=== PATIENT | male | born 1965 | race Caucasian/White ===

== ENCOUNTER 2024-12-01 05:18 | Emergency (ER) | payer SELFPAY ==
[2024-12-01 05:36] VITALS: BMI 32.5
--- NOTE | 2024-12-01 06:43 | MHC.EDTECH ---
Call out to [employer] Watcher @[phone] gave demographics before passing call to .
--- NOTE | 2024-12-01 06:44 | ED_ITS ---
HPI - CPR General Chief Complaint: Cardiac Arrest/CPR Stated Complaint: cardiac arrest Time Seen by Provider: 12/01/24 05:28 Source: family and EMS Mode of arrival: EMS Limitations: other (cardiac arrest) History of Present Illness ED Provider: Dr. Jacky Bueno HPI narrative: 59-year-old male with no past medical history who presents emergency department for evaluation of asystolic cardiac arrest. Information came from the patient's and [id number] as well as EMS. The states that she sleeps in a separate room then her . She got up this morning to go to work inject in on her in found him lying on the floor in his bedroom. Patient was unresponsive. When EMS arrived they started CPR and the 1st cardiac rhythm was asystole. EMS put in an iGel LMA airway and placed the patient on a Mario CPR device. Patient was given 6 rounds of epinephrine in remained asystolic throughout the entire EMS resuscitation. The estimate that they did ALS for approximately 30 minutes prior to arriving in the emergency department. In the emergency department CPR was continued with the Mario device, the patient was given epinephrine IV. At the 1st pulse check the patient was pulseless. At the 1st rhythm check the patient was asystolic. The patient was given 2nd dose of epinephrine and again at the 2nd pulse check and rhythm check the patient was pulseless and asystolic. At this point the patient had been asystolic for greater than 40 minutes and the patient was pronounced at 05:26 hours. The patient's and [id number] were in the emergency department and I did inform them of the patient's . The family told me that the patient had been ill for approximately 5-7 days with shortness of breath and occasional cough. He did not complain of chest pain. His tried to encourage him to go to the emergency department or to see a doctor but the patient refused. His family states that the patient has not seen a doctor in many years. The patient is a cigarette smoker hernia smoked for many years. He did drink alcohol several times a week. He did not use drugs. Related Data Allergies Allergy/AdvReac Type Severity Reaction Status Date / Time No Known Allergies Allergy Verified 12/01/24 05:41 [facility] Social History Social History Advance Directives: No Advance Directives Information Provided: No Physical Exam Vital Signs: Vital Signs: BMI result Body Mass Index 32.5 Exam: General: Patient is unresponsive to verbal or painful stimuli Head: Normocephalic, atraumatic EENT: pupils were fixed and dilated, patient was intubated with LMA Neck: no bruises or concerning markings on his neck Lung: breath sounds symmetric with respiratory assist with bag-valve through LMA Chest: no bruising noted Heart: no heart sounds Abdomen: no abdominal sounds, no concerning bruising noted Extremities: cool to the touch, cyanotic Neuro: no spontaneous movement Medical Decision Making Medical Decision Making MDM Narrative: 59-year-old male with no past medical history, has not seen a doctor in many years, tobacco use disorder and alcohol use, sick for 5-7 days with shortness of breath and occasional cough, found unresponsive on his bedroom floor by his , who presents emergency department for evaluation of asystolic cardiac arrest. patient had of these 30 minutes of ACLS resuscitation by EMS prior to arrival and remained asystolic. In the emergency department the patient's 1st rhythm was asystolic and after 2 rounds of epinephrine, the patient remained asystolic with no pulses and was pronounced . Differential diagnosis: Includes but is not limited to pulmonary edema, pulmonary embolism, myocardial infarction, pneumonia,viral syndrome Course: The patient was pronounced by me at 05:26 hours. The patient's and [id number] in the emergency department and I did discuss the patient's resuscitation with them. Case was also presented to the medical administrative technician who declined jurisdiction over this case. Admission/Observation Consideration of admission/observation: Escalation of care including admission/observation considered (yes) Independent Interpretation I performed an independent interpretation of an: Rhythm Strip Interpretation: My interpretation the patient's final rhythm strip was as follows: Asystole Independent Historian Clinical information obtained from an independent historian. History obtained from or confirmed by: Spouse, EMS and Other ( [id number]) Critical Care Time Critical Care Time Critical Care Time: Yes Total Critical Care Time: 35 Attestation: Critical Care: The patient was critically ill with a high probability of imminent or life threatening deterioration. I spent greater than 30 minutes of discontinuous time evaluating the patient,delivering critical care at the bedside, discussing and evaluating pertinent data with consultants. Critical care time does not include time spent performing separately billable procedures or teaching. Total time spent performing critical care was 35 minutes. Discharge Plan Discharge Clinical Impression: Cardiac arrest Patient Disposition: Discharge Date/Time: 12/01/24 09:35 Date/Time: 12/01/24 05:26
--- NOTE | 2024-12-01 08:36 | PC.NURSE ---
family has chosen [facility] for the home.
== END 2024-12-01 09:35 | disposition expired ==
PROVIDERS: Emergency Provider Emergency Medicine Emergency Medical Services
DX: I46.9 Cardiac arrest, cause unspecified (principal)
CPT/HCPCS: 96374; 99281; 99285; J0171